=== PATIENT | female | born 1990 | race Two or more races ===

== ENCOUNTER 2024-09-02 08:20 | Emergency (ER) | payer MEDICAID, SELFPAY ==
[2024-09-02 08:26] VITALS: BP 120/77; PULSE 123; RESP 19; TEMP 36.7; O2SAT 98
--- NOTE | 2024-09-02 08:42 | PD.EDRME ---
Rapid Medical Screening Exam RME Arrival date/time: 09/02/24 08:20 33-year-old female presents emergency department complaint of nausea and vomiting ongoing for last couple of weeks Chief Complaint: Nausea/Vomiting/Diarrhea Time Seen by Provider: 09/02/24 08:31 Vital signs: Vital Signs Temperature 98.1 F 09/02/24 08:26 Pulse Rate 123 H 09/02/24 08:26 Respiratory Rate 19 09/02/24 08:26 Blood Pressure 120/77 09/02/24 08:26 Pulse Oximetry (%) 98 09/02/24 08:26 Oxygen Delivery Method Room Air 09/02/24 08:26
[2024-09-02] MEDS: ONDANSETRON ODT 4 MG TABRAP PO (08:54)
[2024-09-02 09:05] LABS: Basophils % (Auto) 0 % (0-2.5); Eosinophils % (Auto) 0 % (0-10); Hematocrit 39.2 % (36.0-46.0); Hemoglobin 12.9 g/dL (12.0-16.0); Immature Granulocytes % (Auto) 0 % (0-0); Immature Granulocytes Auto 0.05 Thou/mm3 (0.00-0.00); Lymphocytes # (Auto) 2.3 Thou/mm3 (1.0-4.8); Lymphocytes % (Auto) 16 % (10-50); Mean Corpuscular HGB Conc 32.9 g/dl (31.0-37.0); Mean Corpuscular Hemoglobin 30.4 pg (25.0-35.0); Mean Corpuscular Volume 92 fL (80-100); Monocytes # (Auto) 0.8 Thou/mm3 (0.0-0.8); Monocytes % (Auto) 6 % (0-12); Neutrophils % (Auto) 77 % (37-80); Nucleated Red Blood Cell % 0 /100 WBC (0); Platelet Count 331 Thou/mm3 (140-440); RDW Standard Deviation 47.3 fL (36.4-46.3); Red Blood Count 4.25 Miln/mm3 (4.00-5.20); White Blood Count 14.2 Thou/mm3 (3.6-11.0)
[2024-09-02 09:34] LABS: Collection Type, Urine Clean Catch
[2024-09-02 09:35] LABS: Alanine Aminotransferase < 7 U/L (10-49); Albumin, Serum 4.9 gm/dL (3.5-5.0); Albumin/Globulin Ratio 1.5 (1.2-2.2); Alkaline Phosphatase 70 U/L (46-116); Anion Gap 7 (7-16); Aspartate Amino Transferase 11 U/L (0-34); BUN/Creatinine Ratio 14 Ratio (12-20); Bilirubin,Total 0.4 mg/dL (0.3-1.2); Blood Urea Nitrogen 10 mg/dL (9-23); Calcium 9.1 mg/dL (8.3-10.6); Calcium (Corrected) 9.1 mg/dL (8.5-10.1); Carbon Dioxide 25.2 mMol/L (20.0-31.0); Chloride 105 mMol/L (98-107); Creatinine (Component) 0.7 mg/dL (0.6-1.3); Estimated Creatinine Clearance 101.5 mL/min (>60); Globulin 3.3 gm/dL (2.3-3.5); Glucose 100 mg/dL (74-106); Lipase 39 U/L (12-53); Osmolality,Calculated 272 (275-295); Potassium 3.6 mMol/L (3.4-5.1); Sodium 137 mMol/L (136-145); Total Protein 8.2 gm/dL (5.7-8.2); eGFR > 60 See Note
[2024-09-02 09:47] LABS: HCG Qualitative,Urine Negative
[2024-09-02 10:02] LABS: Amphetamine/Methamp Scrn,U Negative (Negative); Barbiturate Screen,Urine Negative (Negative); Benzodiazepines Screen,Urine Negative (Negative); Benzoylecgonine Screen, Ur Negative (Negative); Fentanyl Screen,Urine Negative (Negative); Opiate Screen,Urine Negative (Negative); THC Screen,Urine Positive (Negative)
[2024-09-02 10:09] LABS: Bilirubin,Urine Negative (Negative); Blood,Urine 3+ (Negative); Clarity,Urine Turbid (Clear/Hazy); Color,Urine Yellow (Lt Yel-Yel); Culture Indicated,Urine Contaminated; Glucose, Urine Negative (Negative); Ketones,Urine 4+ (Negative); Leukocyte Esterase,Urine Positive (Negative); Nitrite,Urine Negative (Negative); Protein,Urine 2+ (Neg - Trace); RBC,Urine 136 /hpf (0-3); Specific Gravity,Urine 1.035 (1.001-1.035); Squamous Epithelial Cell,Urine 23 /hpf (0-5); WBC,Urine 99 /hpf (0-5)
[2024-09-02 11:06] VITALS: BP 126/84; PULSE 93; RESP 16; TEMP 37.6; O2SAT 98
== END 2024-09-02 12:05 | disposition left against medical advice (07) ==
PROVIDERS: Nurse Practitioner Primary Care; Emergency Provider Emergency Medicine; PCP Nurse Practitioner Family
DX: R11.2 Nausea with vomiting, unspecified (principal); R19.7 Diarrhea, unspecified; Z53.29 Procedure and treatment not carried out because of patient's decision for other reasons
CPT/HCPCS: 36415; 80053; 80307; 81001; 81025; 83690; 85025; 99281; Q0162

== ENCOUNTER 2024-09-03 14:38 | Emergency (ER) | payer MEDICAID, SELFPAY ==
[2024-09-03 14:59] VITALS: BP 115/85; PULSE 137; RESP 20; TEMP 38.3; O2SAT 98; BMI 28.7
--- NOTE | 2024-09-03 15:09 | XR_ITS ---
Examination: PA lateral chest 2 views TECHNIQUE: Upright PA lateral chest 2 views Exam date and time: September 03, 2024 1540 hours INDICATIONS: Chest pain today FINDINGS: Normal heart size Lungs are clear. The osseous structures are intact IMPRESSION: No active disease
--- NOTE | 2024-09-03 15:09 | PD.EDRME ---
Rapid Medical Screening Exam RME Arrival date/time: 09/03/24 14:38 33-year-old female presents emergency department complaints of cough, congestion, difficulty breathing patient is febrile Sepsis protocol initiated Chief Complaint: Chest Pain Time Seen by Provider: 09/03/24 14:41 Vital signs: Vital Signs Temperature 101.0 F H 09/03/24 14:59 Pulse Rate 137 H 09/03/24 14:59 Respiratory Rate 20 09/03/24 14:59 Blood Pressure 115/85 H 09/03/24 14:59 Pulse Oximetry (%) 98 09/03/24 14:59 Oxygen Delivery Method Room Air 09/03/24 14:59
[2024-09-03 15:33] LABS: Lactate (Lactic Acid) 1.4 mMol/L (0.4-2.0)
[2024-09-03 15:35] LABS: Basophils % (Auto) 0 % (0-2.5); Eosinophils % (Auto) 0 % (0-10); Hematocrit 38.5 % (36.0-46.0); Hemoglobin 13.2 g/dL (12.0-16.0); Immature Granulocytes % (Auto) 0 % (0-0); Immature Granulocytes Auto 0.04 Thou/mm3 (0.00-0.00); Lymphocytes # (Auto) 2.4 Thou/mm3 (1.0-4.8); Lymphocytes % (Auto) 22 % (10-50); Mean Corpuscular HGB Conc 34.3 g/dl (31.0-37.0); Mean Corpuscular Hemoglobin 30.8 pg (25.0-35.0); Mean Corpuscular Volume 90 fL (80-100); Monocytes # (Auto) 0.4 Thou/mm3 (0.0-0.8); Monocytes % (Auto) 3 % (0-12); Neutrophils # (Auto) 8.1 Thou/mm3 (1.8-7.7); Neutrophils % (Auto) 74 % (37-80); Nucleated Red Blood Cell % 0 /100 WBC (0); Platelet Count 328 Thou/mm3 (140-440); RDW Standard Deviation 45.6 fL (36.4-46.3); Red Blood Count 4.29 Miln/mm3 (4.00-5.20)
[2024-09-03 15:47] VITALS: TEMP 38.3
[2024-09-03] MEDS: ACETAMINOPHEN 500 MG TABLET 1000 MG PO (15:47)
--- NOTE | 2024-09-03 15:49 | EDNOTE_ITS ---
ED General RME/HPI General Chief complaint: Chest Pain Stated complaint: CHEST PAIN, I CAN'T BREATH Time Seen by Provider: 09/03/24 14:41 Arrival date/time: 09/03/24 14:38 CC: Lightheaded dizzy when stands up, nausea vomiting x 1 month every time she eats HPI nausea vomiting for the last 2 to 3 days nausea vomiting in the past month. Patient denies cough nasal congestion. Patient states last menstrual cycle is irregular secondary to on the patch. The patient is sexually active with 4 children's. Patient denies vaginal bleeding vaginal discharge chest pain shortness of breath difficulty breathing intermittent nausea without vomiting. RME / HPI RME / HPI narrative: 09/03/24 14:38 33-year-old female presents emergency department complaints of cough, congestion, difficulty breathing patient is febrile Sepsis protocol initiated Related Data Home Medications ?Medication ?Instructions ?Recorded ?Confirmed vitamins-iron fumarate 27 1 tab PO QDAY 01/13/20 01/13/20 mg iron-folic acid 0.8 mg tablet ( Vitamin) Previous Rx's ?Medication ?Instructions ?Recorded ibuprofen 600 mg tablet 600 mg PO Q6H PRN fever or pain 02/04/20 #90 tabs gabapentin 300 mg capsule 300 mg PO BID #30 caps 08/16/23 naproxen 500 mg tablet 500 mg PO BID PRN pain #30 tabs 08/16/23 medroxyprogesterone 5 mg tablet 5 mg PO QDAY #30 tabs 05/07/24 (Provera) ondansetron 4 mg disintegrating 4 mg PO Q8H #14 tabs 05/07/24 tablet ondansetron 4 mg disintegrating 4 mg PO Q8H #14 tabs 09/03/24 tablet sucralfate 1 gram tablet (Carafate) 1 g PO BID #20 tabs 09/03/24 Allergies Allergy/AdvReac Type Severity Reaction Status Date / Time No Known Allergies Allergy Verified 09/03/24 14:39 Review of Systems Review of Systems Narrative Review of Systems: GEN: + fever, no chills, no weight loss EYES: No discharge, no visual changes, no pain HEENT: No ear pain, no congestion, no sore throat PULM: No shortness of breath, no cough, no congestion CV: No chest pain, no dyspnea on exertion, no palpitations GI: + nausea, + vomiting, no diarrhea, no pain, no constipation : No frequency, no urgency, no dysuria MUSC/SKEL: No joint pain, no back pain SKIN: No rash PSYCH: No hallucinations, no depression HEME/LYMPH: No easy bleeding or bruising tendencies NEURO: No weakness, no headache Past Medical History Past Medical History NEUROLOGIC: Positive Neurological Disorders, Melton's Palsy and Head Trauma; Negative Seizures CARDIAC: Negative Cardiac Disorders or Congestive Heart Failure RESPIRATORY: Negative Chronic Obstructive Pulmonary Disease (COPD) or Asthma GASTROINTESTINAL: Negative Gastrointestinal Disorders GENITOURINARY: Negative Genitourinary Disorders or Renal Disease REPRODUCTIVE: Positive Endometriosis and Previous Pregnancies MUSCULOSKELETAL: Negative Musculoskeletal Disorders ENT: Positive Head Trauma ENDOCRINE: Negative Endocrine Disorders, Diabetes Mellitus Type 1 or Diabetes Mellitus Type 2 HEMATOLOGIC: Negative Blood Disorders or Sickle Cell Disease PSYCHO/SOCIAL: Positive Depression and Anxiety OTHER HISTORY: Negative Hospitalization, Autoimmune Disease, Shingles, Falls, Blood Transfusions, Blood Transfusion Reaction, Anesthesia Reactions, Chemotherapy, Radiation Therapy or MRSA Family History FAMILY HISTORY: Positive Family Psychiatric Problems, Family Respiratory Disorders, Family Cardiac Disorders, Family Gastrointestinal Problems, Family Surgery and Family Anesthesia Reaction; Negative Family Cancer Surgical History SURGICAL: Negative Section Social History SMOKING STATUS: Never smoker ED Exam Narrative Physical exam: [General: Not in any acute distress Head normocephalic HEENT: Within acceptable limits Neck is supple nontender Chest equal chest rise nontender to palpation Respiratory: Clear to auscultation no wheezes crackles or rubs CV: Rate rhythm is regular, tachycardic, no murmurs rubs or clicks Abdomen is distended secondary to body habitus soft nontender no masses positive bowel sounds all 4 quadrants Back: No CVA tenderness no spinous process tenderness from cervical spine thoracic and lumbar spine Skin: Intact no petechiae rash induration ulceration or crepitus Extremities: Moving all extremity against resistance cap refill less than 2 seconds neurosensory intact Neuro: Awake alert oriented x3 Glascow coma 15 no focal deficits] Course Quality Measures none Orders Category Date Time Status Bedside COVID-19 Antigen Test NOW Care 09/03/24 15:09 Completed Bedside COVID-19 Antigen Test NOW Care 09/03/24 15:52 Completed Bedside Influenza A&B Antigen Test NOW Care 09/03/24 15:09 Completed Bedside Influenza A&B Antigen Test NOW Care 09/03/24 15:52 Completed Saline [Insert IV] NOW Care 09/03/24 15:48 Completed XR chest 2V Stat Exams 09/03/24 15:09 Completed Blood Culture (Lab) Stat Lab 09/03/24 15:18 Received CBC Stat Lab 09/03/24 15:18 Completed Comprehensive Metabolic Panel Stat Lab 09/03/24 15:18 Completed Lactate (Lactic Acid) Stat Lab 09/03/24 15:18 Completed Procalcitonin Stat Lab 09/03/24 15:18 Completed Acetaminophen Tab [Tylenol ES Tab] Med 09/03/24 15:10 Discontinued 1,000 mg PO X1 ONE KCL 10% Liq UDC 15 ML Med 09/03/24 16:40 Discontinued 40 meq GT X1 ONE Ondansetron Odt [Zofran Odt] Med 09/03/24 17:32 Discontinued 4 mg PO X1 ONE Sodium Chloride 0.9% 1000 ml [Ns] 1,000 ml Med 09/03/24 15:48 Discontinued IV 999 mls/hr Sodium Chloride 0.9% 1000 ml [Ns] 1,000 ml Med 09/03/24 15:49 Discontinued IV 999 mls/hr Vital Signs Vital signs: Vital Signs Temperature 101.0 F H 09/03/24 14:59 Pulse Rate 137 H 09/03/24 14:59 Respiratory Rate 20 09/03/24 14:59 Blood Pressure 115/85 H 09/03/24 14:59 Pulse Oximetry (%) 98 09/03/24 14:59 Oxygen Delivery Method Room Air 09/03/24 14:59 [facility] Patient data External records reviewed:: [facility] previous records Clinical information provided by:: patient Social determinants that could affect healthcare access:: none Patient has the following chronic illnesses:: Fibromyalgia How is presenting disease/condition affected by chronic disease/condition?: u neffected by Evaluation data The following diagnostics were reviewed and interpreted by me:: lab results, radiology exam(s) and EKG tracing(s) Lab and/or radiology exams considered but not ordered:: CBC shows no acute leukocytosis anemia thrombocytopenia CMP shows a potassium of 3.0 no other electrolyte imbalances no renal impairment transaminitis or T. bili elevation Urine is negative Lipase is negative UDS is positive for marijuana Procalcitonin is negative. Interpretation Summary: After 2 L of fluid the patient is feeling well the nausea is resolved with Zofran, patient will be discharged home with Zofran and Carafate. She is to follow-up with her primary care provider. Medications Medications considered but not ordered:: None Medication administrations:: Medication Administration History Discontinued Medications Acetaminophen (Acetaminophen 500 Mg Tablet) 1,000 mg PO X1 ONE Stop: 09/03/24 15:11 Last Admin: 09/03/24 15:47 Dose: 1,000 mg Documented By: [place] Sodium Chloride (Ns) 1,000 mls @ 999 mls/hr IV .Q1H1M ONE Stop: 09/03/24 16:48 Last Infusion: 09/03/24 18:05 Dose: Infused Documented By: Admin: 09/03/24 16:50 Dose: 999 mls/hr Documented By: Sodium Chloride (Ns) 1,000 mls @ 999 mls/hr IV .Q1H1M ONE Stop: 09/03/24 16:49 Last Infusion: 09/03/24 18:05 Dose: Infused Documented By: Admin: 09/03/24 17:03 Dose: 999 mls/hr Documented By: Ondansetron HCl (Ondansetron Odt 4 Mg Tabrap) 4 mg PO X1 ONE; Protocol Stop: 09/03/24 17:33 Last Admin: 09/03/24 18:35 Dose: 4 mg Documented By: Potassium Chloride (Potassium Chloride 10% 20 Meq/15 Ml Udc) 40 meq GT X1 ONE Stop: 09/03/24 16:41 Last Admin: 09/03/24 17:02 Dose: 40 meq Documented By: None Consultations Consultation(s) initiated? (list below): No Diagnosis Differential Diagnosis ED Complaint MDM: Sepsis UTI DAVE Most likely diagnosis given after review of the tests above:: Dehydration nausea vomiting Admission Indicated Admission indicated?: not indicated Explain why admission is indicated or not indicated:: Stable for outpatient follow-up Admission Request Was there a request for admission?: No Disposition Plan Disposition Plan: Discharge Discharge Attestation Discharge Attestation: The patient and all family members were given an opportunity to ask questions and understood the discharge instructions. Discharge instructions specifically effects, indications for sooner follow up or return to the emergency department, and the expected course of current diagnosis. Patient condition: Stable Medical Decision Making Differential Diagnosis Differential Diagnosis: Sepsis UTI DAVE Lab Data 09/03/24 15:18 09/03/24 15:18 Labs: Lab Results 09/03/24 Range/Units 15:18 WBC 11.0 (3.6-11.0) Thou/mm3 RBC 4.29 (4.00-5.20) Miln/mm3 Hgb 13.2 (12.0-16.0) g/dL Hct 38.5 (36.0-46.0) % MCV 90 (80-100) fL MCH 30.8 (25.0-35.0) pg MCHC 34.3 (31.0-37.0) g/dl RDW Std Deviation 45.6 (36.4-46.3) fL Plt Count 328 (140-440) Thou/mm3 Neut % (Auto) 74 (37-80) % Lymph % (Auto) 22 (10-50) % [place] % (Auto) 3 (0-12) % Eos % (Auto) 0 (0-10) % Baso % (Auto) 0 (0-2.5) % Neut # (Auto) 8.1 H (1.8-7.7) Thou/mm3 Lymph # (Auto) 2.4 (1.0-4.8) Thou/mm3 [place] # (Auto) 0.4 (0.0-0.8) Thou/mm3 Eos # (Auto) 0.0 (0.0-0.5) Thou/mm3 Baso # (Auto) 0.0 (0.0-0.2) Thou/mm3 Immature Gran # (Auto) 0.04 H (0.00-0.00) Thou/mm3 Absolute Nucleated RBC 0.00 (0.00-0.00) Thou/mm3 Immature Gran % 0 (0-0) % Nucleated RBC % 0 (0) /100 WBC Sodium 136 (136-145) mMol/L Potassium 3.2 L (3.4-5.1) mMol/L Chloride 106 (98-107) mMol/L Carbon Dioxide 21.2 (20.0-31.0) mMol/L Anion Gap 9 (7-16) BUN 9 (9-23) mg/dL Creatinine 0.7 (0.6-1.3) mg/dL Estim Creat Clear Calc 103.4 (>60) mL/min eGFR > 60 (60 - ) See Note BUN/Creatinine Ratio 13 (12-20) Ratio Glucose 104 (74-106) mg/dL Calculated Osmolality 270 L (275-295) Lactic Acid 1.4 (0.4-2.0) mMol/L Calcium 9.3 (8.3-10.6) mg/dL Corrected Calcium 9.3 (8.5-10.1) mg/dL Total Bilirubin 0.5 (0.3-1.2) mg/dL AST 11 (0-34) U/L ALT < 7 L (10-49) U/L Alkaline Phosphatase 72 (46-116) U/L Total Protein 8.1 (5.7-8.2) gm/dL Albumin 4.8 (3.5-5.0) gm/dL Globulin 3.3 (2.3-3.5) gm/dL Albumin/Globulin Ratio 1.5 (1.2-2.2) Procalcitonin 0.04 (0.0-0.49) ng/ml Discharge Plan Plan Patient Disposition: HOME (Self Care) Patient condition on transfer: Stable Prescriptions/Referrals Prescriptions/Med Rec: New sucralfate [Carafate] 1 gram tablet 1 g PO BID Qty: 20 0RF ondansetron 4 mg tablet,disintegrating 4 mg PO Q8H Qty: 14 0RF No Action Vitamin 27 mg iron- 0.8 mg Tablet 1 tab PO QDAY ibuprofen 600 mg tablet 600 mg PO Q6H PRN (Reason: fever or pain) Qty: 90 0RF medroxyprogesterone [Provera] 5 mg tablet 5 mg PO QDAY Qty: 30 1RF ondansetron 4 mg tablet,disintegrating 4 mg PO Q8H Qty: 14 0RF naproxen 500 mg tablet 500 mg PO BID PRN (Reason: pain) Qty: 30 0RF gabapentin 300 mg capsule 300 mg PO BID Qty: 30 0RF Referrals: Maria E Mcdonald FNP [Primary Care Provider] - In 1 week Problem List Clinical Impression: Nausea & vomiting, Fever Patient/Caregiver Discharge Instructions Education Materials: ED Diet for Vomiting or ..., ED Vomiting (Adult) Additional Instructions: Take the medication as prescribed for nausea and just before meal. Follow-up with your primary care provider if there is a worsening of symptoms return the emergency room for reevaluation. Print Language: Barbadian Stand Alone Forms: [employer] Award Info., Work/School Release, Patient Portal Info Letter Attestation Attestation The patient was seen by the midlevel practitioner. I, the co-signing physician, was present during the entire ER visit. While I did not physically examine the patient, I was available for consultation as needed.
[2024-09-03 16:05] LABS: Alanine Aminotransferase < 7 U/L (10-49); Albumin, Serum 4.8 gm/dL (3.5-5.0); Albumin/Globulin Ratio 1.5 (1.2-2.2); Alkaline Phosphatase 72 U/L (46-116); Anion Gap 9 (7-16); Aspartate Amino Transferase 11 U/L (0-34); BUN/Creatinine Ratio 13 Ratio (12-20); Bilirubin,Total 0.5 mg/dL (0.3-1.2); Blood Urea Nitrogen 9 mg/dL (9-23); Calcium 9.3 mg/dL (8.3-10.6); Calcium (Corrected) 9.3 mg/dL (8.5-10.1); Carbon Dioxide 21.2 mMol/L (20.0-31.0); Chloride 106 mMol/L (98-107); Creatinine (Component) 0.7 mg/dL (0.6-1.3); Estimated Creatinine Clearance 103.4 mL/min (>60); Globulin 3.3 gm/dL (2.3-3.5); Glucose 104 mg/dL (74-106); Osmolality,Calculated 270 (275-295); Potassium 3.2 mMol/L (3.4-5.1); Procalcitonin 0.04 ng/ml (0.0-0.49); Sodium 136 mMol/L (136-145); Total Protein 8.1 gm/dL (5.7-8.2); eGFR > 60 See Note
[2024-09-03] MEDS: SODIUM CHLORIDE 0.9% 1000 ML 1,000 ML 999 ML IV ×2 (16:50→17:03)
[2024-09-03] MEDS: POTASSIUM CHLORIDE 10% 20 MEQ/15 ML UDC 40 MEQ GT (17:02)
[2024-09-03 17:47] VITALS: BP 113/67; PULSE 90; RESP 19; TEMP 36.7; O2SAT 98
[2024-09-03 18:06] VITALS: TEMP 36.9
[2024-09-03 18:27] VITALS: BP 102/69; PULSE 86; RESP 18; TEMP 37.2; O2SAT 99
[2024-09-03] MEDS: ONDANSETRON ODT 4 MG TABRAP PO (18:35)
== END 2024-09-03 19:28 | disposition home or self-care (01) ==
PROVIDERS: Nurse Practitioner Primary Care; Emergency Provider Emergency Medicine; PCP Nurse Practitioner Family
DX: R11.2 Nausea with vomiting, unspecified (principal); R50.9 Fever, unspecified; R07.9 Chest pain, unspecified
CPT/HCPCS: 36415; 71046; 80053; 81001; 81025; 83605; 84145; 85025; 87040; 87400; 87811; 96360; 99284; J7030; Q0162; A9270

== ENCOUNTER 2024-09-04 13:15 | Emergency (ER) | payer MEDICAID, SELFPAY ==
--- NOTE | 2024-09-04 13:22 | EDNOTE_ITS ---
ED General RME/HPI General Chief complaint: General Adult/Misc Complain Stated complaint: AMS Time Seen by Provider: 09/04/24 13:21 Arrival date/time: 09/04/24 13:15 CC: Catatonic state HPI patient presents the ER via EMS with stable vital signs but not responding to EMS other than with sternal rub and the patient is very deliberate and her localization. Patient was just seen here yesterday was very animated, had complaints of fever and nausea vomiting had a full treatment including IV fluids and was sent home on medications. When initially approached the patient, she recognized me and nodded but the minute she closed her eyes she then went into a nonresponsive state, and was very deliberate and removing my hand from her sternal rub. Vital signs were stable. EMS reports she went to the bathroom to throw up and family members found her on the floor. At 1430, the patient is awake enough to admit that she took somewhere between 10 and 2050 mg trazodone's because she wanted to get some sleep . The patient denies suicidal homicidal ideation. Related Data Home Medications ?Medication ?Instructions ?Recorded ?Confirmed vitamins-iron fumarate 27 1 tab PO QDAY 01/13/20 01/13/20 mg iron-folic acid 0.8 mg tablet ( Vitamin) Previous Rx's ?Medication ?Instructions ?Recorded ibuprofen 600 mg tablet 600 mg PO Q6H PRN fever or pain 02/04/20 #90 tabs gabapentin 300 mg capsule 300 mg PO BID #30 caps 08/16/23 naproxen 500 mg tablet 500 mg PO BID PRN pain #30 tabs 08/16/23 medroxyprogesterone 5 mg tablet 5 mg PO QDAY #30 tabs 05/07/24 (Provera) ondansetron 4 mg disintegrating 4 mg PO Q8H #14 tabs 05/07/24 tablet ondansetron 4 mg disintegrating 4 mg PO Q8H #14 tabs 09/03/24 tablet sucralfate 1 gram tablet (Carafate) 1 g PO BID #20 tabs 09/03/24 Allergies Allergy/AdvReac Type Severity Reaction Status Date / Time No Known Allergies Allergy Verified 09/03/24 14:39 Review of Systems Review of Systems ROS Unobtainable: unobtainable due to mental status Past Medical History Past Medical History NEUROLOGIC: Positive Neurological Disorders, Melton's Palsy and Head Trauma; Negative Seizures CARDIAC: Negative Cardiac Disorders or Congestive Heart Failure RESPIRATORY: Negative Chronic Obstructive Pulmonary Disease (COPD) or Asthma GASTROINTESTINAL: Negative Gastrointestinal Disorders GENITOURINARY: Negative Genitourinary Disorders or Renal Disease REPRODUCTIVE: Positive Endometriosis and Previous Pregnancies MUSCULOSKELETAL: Negative Musculoskeletal Disorders ENT: Positive Head Trauma ENDOCRINE: Negative Endocrine Disorders, Diabetes Mellitus Type 1 or Diabetes Mellitus Type 2 HEMATOLOGIC: Negative Blood Disorders or Sickle Cell Disease PSYCHO/SOCIAL: Positive Depression and Anxiety OTHER HISTORY: Negative Hospitalization, Autoimmune Disease, Shingles, Falls, Blood Transfusions, Blood Transfusion Reaction, Anesthesia Reactions, Chemotherapy, Radiation Therapy or MRSA Family History FAMILY HISTORY: Positive Family Psychiatric Problems, Family Respiratory Disorders, Family Cardiac Disorders, Family Gastrointestinal Problems, Family Surgery and Family Anesthesia Reaction; Negative Family Cancer Surgical History SURGICAL: Negative Section Social History SMOKING STATUS: Never smoker ED Exam Narrative Physical exam: [General: Obese awake, appears not in any acute distress Head normocephalic HEENT: Eyes pupils are PERRLA EOMs are intact all other subsystems of HEENT are within acceptable limits Neck is supple nontender Chest equal chest rise nontender to palpation Respiratory: Clear to auscultation no wheezes crackles or rubs CV: Rate rhythm is regular no murmurs rubs or clicks Abdomen is distended secondary to body habitus soft nontender no masses positive bowel sounds all 4 quadrants Back: No CVA tenderness no spinous process tenderness from cervical spine thoracic and lumbar spine Skin: Intact no petechiae rash induration ulceration or crepitus Extremities: Moving all extremity against resistance cap refill less than 2 seconds neurosensory intact Neuro: Awake not responding to questions. Course Course Course Narrative: Contact poison control side effects include BLAST SETTER depression, QTc prolongation, potential seizure disorders altered mentation minimal of observation time is 6 hours, recommend activated charcoal as ingestion time is 1 hour. Although the patient denies suicidal ideation I saw her yesterday and her chief complaint was lengthily involving 1+ months of nausea vomiting every time she eats although she is not malnourished. I wonder if this is psychological or not the combination of the behavior today and her complaints yesterday may be concerned that the patient is suffering from depression which the patient has a history of. At this time going to put her on a 1798 hold, wait until she is medically cleared for evaluation in the morning. Quality Measures none Orders Category Date Time Status 179 Psychiatric Hold NOW Care 09/04/24 14:45 Ordered EKG (ED ONLY) *Do not use* NOW Care 09/04/24 14:32 Completed EKG (ED ONLY) *Do not use* NOW Care 09/04/24 18:54 Completed Diet Regular Diet 09/05/24 Breakfast Active EKG (ED Only) Stat Exams 09/04/24 14:32 Draft EKG (ED Only) Stat Exams 09/04/24 18:54 Draft Acetaminophen Stat Lab 09/04/24 13:29 Completed Alcohol, Blood Medical Stat Lab 09/04/24 13:29 Completed CBC Stat Lab 09/04/24 13:29 Completed CMP [Comprehensive Metabolic Panel] Stat Lab 09/04/24 13:29 Completed Drug Screen,Urine Stat Lab 09/04/24 20:38 Completed HCG Qualitative,Urine Stat Lab 09/04/24 20:38 Completed Salicylate Stat Lab 09/04/24 13:29 Completed Urinalysis Stat Lab 09/04/24 20:38 Completed KCL 10% Liq UDC 15 ML Med 09/04/24 18:54 Discontinued 40 meq GT X1 ONE activated charcoaL [Actidose-Aqua] Med 09/04/24 14:32 Discontinued 50 gm PO X1 ONE Vital Signs Vital signs: Vital Signs Temperature 98.1 F 09/04/24 14:27 Pulse Rate 97 09/04/24 14:27 Respiratory Rate 14 09/04/24 14:27 Blood Pressure 104/61 09/04/24 14:27 Pulse Oximetry (%) 99 09/04/24 14:27 Oxygen Delivery Method Room Air 09/04/24 14:27 [facility] Patient data External records reviewed:: [facility] previous records and EMS form Clinical information provided by:: patient and EMS Social determinants that could affect healthcare access:: none Patient has the following chronic illnesses:: None How is presenting disease/condition affected by chronic disease/condition?: u neffected by Evaluation data The following diagnostics were reviewed and interpreted by me:: lab results Lab and/or radiology exams considered but not ordered:: EKG performed at 1446 shows a ventricular of 98 WA interval 131 QRS of 88 QTc of 396 sinus rhythm some T wave abnormalities. No old EKG for comparison. Repeat EKG at 1944 shows a ventricular rate of 109 this is a normal sinus rhythm QRS of 102 QTc of 390. No change with the previous EKG. Interpretation Summary: Severe depression suicidal ideation Medications Medications considered but not ordered:: None Medication administrations:: Medication Administration History Discontinued Medications Charcoal (Activated Charcoal 25 Gm/120 Ml Tube) 50 gm PO X1 ONE Stop: 09/04/24 14:33 Last Admin: 09/04/24 14:48 Dose: 50 gm Documented By: AA Potassium Chloride (Potassium Chloride 10% 20 Meq/15 Ml Udc) 40 meq GT X1 ONE Stop: 09/04/24 18:55 Last Admin: 09/04/24 20:31 Dose: 40 meq Documented By: CG None Consultations Consultation(s) initiated? (list below): No Diagnosis Differential Diagnosis ED Complaint MDM: Suicidal ideation severe depression suicide attempt Most likely diagnosis given after review of the tests above:: Severe depression suicidal ideation suicide attempt Admission Indicated Admission indicated?: indicated Explain why admission is indicated or not indicated:: Further psychiatric management Admission Request Was there a request for admission?: No Disposition Plan Disposition Plan: Transfer Medical Decision Making Differential Diagnosis Differential Diagnosis: Suicidal ideation severe depression suicide attempt Lab Data 09/04/24 13:29 09/04/24 13:29 Labs: Lab Results 09/04/24 09/04/24 Range/Units 13:29 20:38 WBC 7.4 (3.6-11.0) Thou/mm3 RBC 3.81 L (4.00-5.20) Miln/mm3 Hgb 11.8 L (12.0-16.0) g/dL Hct 35.3 L (36.0-46.0) % MCV 93 (80-100) fL MCH 31.0 (25.0-35.0) pg MCHC 33.4 (31.0-37.0) g/dl RDW Std Deviation 48.1 H (36.4-46.3) fL Plt Count 235 D (140-440) Thou/mm3 Neut % (Auto) 72 (37-80) % Lymph % (Auto) 20 (10-50) % [place] % (Auto) 8 (0-12) % Eos % (Auto) 0 (0-10) % Baso % (Auto) 0 (0-2.5) % Neut # (Auto) 5.3 (1.8-7.7) Thou/mm3 Lymph # (Auto) 1.5 (1.0-4.8) Thou/mm3 [place] # (Auto) 0.6 (0.0-0.8) Thou/mm3 Eos # (Auto) 0.0 (0.0-0.5) Thou/mm3 Baso # (Auto) 0.0 (0.0-0.2) Thou/mm3 Immature Gran # (Auto) 0.05 H (0.00-0.00) Thou/mm3 Absolute Nucleated RBC 0.00 (0.00-0.00) Thou/mm3 Immature Gran % 1 H (0-0) % Nucleated RBC % 0 (0) /100 WBC Sodium 136 (136-145) mMol/L Potassium 3.3 L (3.4-5.1) mMol/L Chloride 107 (98-107) mMol/L Carbon Dioxide 18.8 L (20.0-31.0) mMol/L Anion Gap 10 (7-16) BUN 5 L (9-23) mg/dL Creatinine 0.6 (0.6-1.3) mg/dL Estim Creat Clear Calc Not Performed. eGFR > 60 (60 - ) See Note BUN/Creatinine Ratio 8 L (12-20) Ratio Glucose 137 H (74-106) mg/dL Calculated Osmolality 271 L (275-295) Calcium 8.5 (8.3-10.6) mg/dL Corrected Calcium 8.5 (8.5-10.1) mg/dL Total Bilirubin 0.4 (0.3-1.2) mg/dL AST 10 (0-34) U/L ALT 10 (10-49) U/L Alkaline Phosphatase 66 (46-116) U/L Total Protein 7.2 (5.7-8.2) gm/dL Albumin 4.3 D (3.5-5.0) gm/dL Globulin 2.9 (2.3-3.5) gm/dL Albumin/Globulin Ratio 1.5 (1.2-2.2) Ur Collection Type Clean Catch Urine Color Yellow (Lt Yel-Yel) Urine Clarity Turbid A (Clear/Hazy) Urine pH 6.5 (5.0-7.0) Ur Specific [place] 1.032 (1.001-1.035) Urine Protein 1+ A (Neg - Trace) Urine Glucose (UA) Negative (Negative) Urine Ketones 4+ A (Negative) Urine Blood 3+ A (Negative) Urine Nitrite Negative (Negative) Urine Bilirubin Negative (Negative) Urine Urobilinogen (Auto) 4.0 (0.0-1.0) mg/dL Ur Leukocyte Esterase Positive (Negative) Urine RBC 12 H (0-3) /hpf Urine WBC 35 H (0-5) /hpf Ur Squamous Epith Cells 8 H (0-5) /hpf Urine Bacteria None (None) Urine HCG, Qual Negative Salicylates < 3.0 mg/dL Urine Opiates Screen Positive A (Negative) Urine Fentanyl Screen Negative (Negative) Acetaminophen 3.6 L (10.0-20.0) mcg/mL Ur Barbiturates Screen Negative (Negative) U Amphetamin/Meth Scrn Negative (Negative) U Benzodiazepines Scrn Negative (Negative) U Cocaine Metab Screen Negative (Negative) U Marijuana (THC) Screen Positive A (Negative) Ethyl Alcohol < 10.0 (0-10.0) mg/dL Discharge Plan Plan Patient Disposition: [facility] Disposition Comment: Stable for transfer Prescriptions/Referrals Prescriptions/Med Rec: No Action Vitamin 27 mg iron- 0.8 mg Tablet 1 tab PO QDAY ibuprofen 600 mg tablet 600 mg PO Q6H PRN (Reason: fever or pain) Qty: 90 0RF medroxyprogesterone [Provera] 5 mg tablet 5 mg PO QDAY Qty: 30 1RF ondansetron 4 mg tablet,disintegrating 4 mg PO Q8H Qty: 14 0RF sucralfate [Carafate] 1 gram tablet 1 g PO BID Qty: 20 0RF ondansetron 4 mg tablet,disintegrating 4 mg PO Q8H Qty: 14 0RF naproxen 500 mg tablet 500 mg PO BID PRN (Reason: pain) Qty: 30 0RF gabapentin 300 mg capsule 300 mg PO BID Qty: 30 0RF Referrals: Brenda Maldonado PA-C [Primary Care Provider] - In 1 week Problem List Clinical Impression: Suicidal ideation, Overdose Patient/Caregiver Discharge Instructions Print Language: [place] Stand Alone Forms: [employer] Award Info., Patient Portal Info Letter
[2024-09-04 13:47] LABS: Basophils % (Auto) 0 % (0-2.5); Eosinophils % (Auto) 0 % (0-10); Hematocrit 35.3 % (36.0-46.0); Hemoglobin 11.8 g/dL (12.0-16.0); Immature Granulocytes % (Auto) 1 % (0-0); Immature Granulocytes Auto 0.05 Thou/mm3 (0.00-0.00); Lymphocytes # (Auto) 1.5 Thou/mm3 (1.0-4.8); Lymphocytes % (Auto) 20 % (10-50); Mean Corpuscular HGB Conc 33.4 g/dl (31.0-37.0); Mean Corpuscular Volume 93 fL (80-100); Monocytes # (Auto) 0.6 Thou/mm3 (0.0-0.8); Monocytes % (Auto) 8 % (0-12); Neutrophils # (Auto) 5.3 Thou/mm3 (1.8-7.7); Neutrophils % (Auto) 72 % (37-80); Nucleated Red Blood Cell % 0 /100 WBC (0); Platelet Count 235 Thou/mm3 (140-440); RDW Standard Deviation 48.1 fL (36.4-46.3); Red Blood Count 3.81 Miln/mm3 (4.00-5.20); White Blood Count 7.4 Thou/mm3 (3.6-11.0)
[2024-09-04 14:18] LABS: Alanine Aminotransferase 10 U/L (10-49); Albumin, Serum 4.3 gm/dL (3.5-5.0); Albumin/Globulin Ratio 1.5 (1.2-2.2); Alkaline Phosphatase 66 U/L (46-116); Anion Gap 10 (7-16); Aspartate Amino Transferase 10 U/L (0-34); BUN/Creatinine Ratio 8 Ratio (12-20); Bilirubin,Total 0.4 mg/dL (0.3-1.2); Blood Urea Nitrogen 5 mg/dL (9-23); Calcium 8.5 mg/dL (8.3-10.6); Calcium (Corrected) 8.5 mg/dL (8.5-10.1); Carbon Dioxide 18.8 mMol/L (20.0-31.0); Chloride 107 mMol/L (98-107); Creatinine (Component) 0.6 mg/dL (0.6-1.3); Globulin 2.9 gm/dL (2.3-3.5); Glucose 137 mg/dL (74-106); Osmolality,Calculated 271 (275-295); Potassium 3.3 mMol/L (3.4-5.1); Sodium 136 mMol/L (136-145); Total Protein 7.2 gm/dL (5.7-8.2); eGFR > 60 See Note
[2024-09-04 14:27] VITALS: BP 104/61; PULSE 97; RESP 14; TEMP 36.7; O2SAT 99
--- NOTE | 2024-09-04 14:32 | EKG_ITS ---
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
[2024-09-04] MEDS: activated charcoaL 25 GM/120 ML TUBE 50 GM PO (14:48)
[2024-09-04 15:00] VITALS: BMI 29.7
[2024-09-04 15:08] LABS: Acetaminophen 3.6 mcg/mL (10.0-20.0); Alcohol, Blood Medical < 10.0 mg/dL (0-10.0); Salicylate < 3.0 mg/dL
--- NOTE | 2024-09-04 15:27 | PC.CC ---
Patient is a 33 year-old female BIBA for Alter Mental Status due taking 10-20 Trazadone to sleep. Nancie met with patient [id number] to complete assessment. ASW introduced self, role, and reason for assessment. ASW disclosed limits of confidentiality as well. Patient appeared alert and oriented to self, place, and situation. Patient?s mood appeared depressed with a flat affect. No signs of delusions, paranoid or V/h. Patient reports she has not been able to sleep in ?days? and stated, ?I been feeling depressed and sad but for no reason it comes in waves.? The patient reports this was not a suicide attempt and just wanted to get some sleep. The patient reports she had a suicide by means of cutting her wrist more than 10 years ago. The patient denied auditory and visual hallucinations, homicidal ideations. The patient denied past psychiatric hospitalization and reported she has never been placed on a 5150. The patient is connected to [facility] and has a diagnosis of PTSD, Anxiety, Depression, and Dissociative Disorder. The patient is seen by Psychiatrist Dr. Castano and has a therapist. The patient reports she is prescribed psychotropic medication and takes it as ordered. Collateral The following information is collateral from patient?s mother Marietta Bowman . Marietta disclosed that her daughter has been depressed the last several days and has been crying for multiple days. Per Marietta, she has been attempting to stay with the patient as much as she can but reported she went to the room and took the pills today and then told her she had consumed the medication. [facility] ([facility]) reports patient is connected to their clinic and is seen by Dr. Castano with her next appointment being on 10/04/2024 at 9 am. She has an appointment with her therapist on 09/10/2024 at 11 am. Patient was placed on a 1799 at 1445 and is pending clearance and clearance from poison control. ASW to remain available.
--- NOTE | 2024-09-04 18:54 | EKG_ITS ---
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
[2024-09-04 19:03] VITALS: BP 119/75; PULSE 106; RESP 18; TEMP 36.9; O2SAT 96
--- NOTE | 2024-09-04 19:05 | PC.NURSE ---
AT TIME OF ASSESSMENT PATIENT DENIES ANY SUICIDAL THOUGHTS OR IDEATION. PT STATES SHE TOOK PILLS BECAUSE SHE COULDNT SLEEP AND HAD BEEN AWAKE FOR DAYS. SHE WAS ATTEMPTING TO TAKE THE PILLS TO HELP SLEEP AND NOT BECAUSE SHE WAS TRYING TO HURT HERSELF. PT DOES NOT KNOW THE NAME OF THE DRUG SHE TOOK. PT ALERT AND ORIENTED, HAS SITTER AT BEDSIDE AND WILL CONTINUE WITH PLAN OF CARE. PT WAITING TO SEE CRISIS IN AM
[2024-09-04] MEDS: POTASSIUM CHLORIDE 10% 20 MEQ/15 ML UDC 40 MEQ GT (20:31)
[2024-09-04 20:52] LABS: Collection Type, Urine Clean Catch
[2024-09-04 21:11] LABS: Bilirubin,Urine Negative (Negative); Blood,Urine 3+ (Negative); Clarity,Urine Turbid (Clear/Hazy); Color,Urine Yellow (Lt Yel-Yel); Glucose, Urine Negative (Negative); HCG Qualitative,Urine Negative; Ketones,Urine 4+ (Negative); Leukocyte Esterase,Urine Positive (Negative); Nitrite,Urine Negative (Negative); PH,Urine 6.5 (5.0-7.0); Protein,Urine 1+ (Neg - Trace); RBC,Urine 12 /hpf (0-3); Specific Gravity,Urine 1.032 (1.001-1.035); Squamous Epithelial Cell,Urine 8 /hpf (0-5); WBC,Urine 35 /hpf (0-5)
[2024-09-04 21:27] LABS: Amphetamine/Methamp Scrn,U Negative (Negative); Barbiturate Screen,Urine Negative (Negative); Benzodiazepines Screen,Urine Negative (Negative); Benzoylecgonine Screen, Ur Negative (Negative); Fentanyl Screen,Urine Negative (Negative); Opiate Screen,Urine Positive (Negative); THC Screen,Urine Positive (Negative)
[2024-09-04 22:00] VITALS: BP 98/62; PULSE 110; RESP 20; TEMP 36.9; O2SAT 98
--- NOTE | 2024-09-04 22:41 | EDNOTE_ITS ---
Emergency Room Addendum Addendum Narrative: 2240: Care assumed from Keyur Horton NP. Past medical, surgical, social and family history reviewed. Vitals and home medications reviewed. Results and treatment plan discussed. I will assume the care of the patient at this time and will follow the patient, pending psychiatric evaluation. Please refer to the emergency department record for history and examination. Patient was placed in observation for treatment and monitoring of psychiatric symptoms, at 2240 on 09/04/2024. Symptoms consist of suicidal ideation and depression. Treatment plan includes psychiatric consult, reassessments, and possible placement into psychiatric facility. The patient had access and provided personal hygiene, shower, food, water, and daily medications. 0600: Care signed out to the next oncoming provider. Past medical, surgical, social and family history reviewed. Vitals and home medications reviewed. Results and treatment plan discussed. They will assume the care of the patient at this time and will follow the patient, pending social services specialist consultation. At this time, observation has ended.
[2024-09-05 00:03] VITALS: BP 93/60; PULSE 83; RESP 17; TEMP 36.7; O2SAT 95
[2024-09-05 01:57] VITALS: BP 94/61; PULSE 79; RESP 17; O2SAT 94
--- NOTE | 2024-09-05 01:58 | PC.NURSE ---
pt resting quietly in bed with eyes closed, vitals signs were taken and no needs were expressed at this time.
[2024-09-05 03:59] VITALS: BP 91/66; PULSE 85; RESP 17; O2SAT 96
[2024-09-05 05:50] VITALS: BP 111/62; PULSE 89; RESP 17; O2SAT 100
--- NOTE | 2024-09-05 06:38 | PC.NURSE ---
NO ISSUES REPORTED THROUGHOUT THE NIGHT. PT WAITING FOR CRISIS/SS IN AM. WILL CONTINUE WITH PLAN OF CARE
--- NOTE | 2024-09-05 06:51 | EDNOTE_ITS ---
Emergency Room Addendum <Ingrid Rahman - Last Filed: 09/05/24 08:55> Addendum Narrative: 0600: Care assumed from Dr. Laguna, the previous shift emergency physician. Past medical, surgical, social and family history reviewed. Vitals and home medications reviewed. I will assume the care of the patient at this time, pending . Please refer to the emergency department record for history and examination from initial visit.? EMS notes reviewed by me. Nursing notes reviewed by me. Vital signs reviewed by me. [place] medical records reviewed by me. 0855: [facility] has notified me that the patient has been accepted by Dr. Andrade at [facility]. <Erick Marie MD - Last Filed: 09/05/24 08:57> Addendum Narrative: 0600: Care assumed from Dr. Laguna, the previous shift emergency physician. Past medical, surgical, social and family history reviewed. Vitals and home medications reviewed. I will assume the care of the patient at this time, pending . Please refer to the emergency department record for history and examination from initial visit.? EMS notes reviewed by me. Nursing notes reviewed by me. Vital signs reviewed by me. [place] medical records reviewed by me. 0855: [facility] has notified me that the patient has been accepted by Dr. Andrade at [facility]. Diagnosis: Medication overdose Condition: Stable for transfer
--- NOTE | 2024-09-05 07:18 | PC.CC ---
Daisy ANNE met with patient to discuss her mental health. Patient presented as depressed and tearful. Patient stated, I am very depressed and I don't know why. Patient reports she has been feeling depressed of the past month and does not know what can be causing her depression. The patient confirmed she is taking her psychotropic medication as prescribed.
--- NOTE | 2024-09-05 07:36 | PC.CC ---
Upon clinical consultation with RING STRIKER, Elma Vallejo patient will be placed on a 5150-hold for Danger to Self. ASW to provide advisement to the patient.
--- NOTE | 2024-09-05 08:51 | PC.NURSE ---
SPOKE WITH FLORINA FROM [facility]. INFO GIVEN. STATES SHE WILL PRESENT TO HER MD AND CALL US BACK.
--- NOTE | 2024-09-05 08:54 | PC.NURSE ---
CISCO FROM [facility] CALLED WITH ACCEPTANCE BY DR WADDELL. NURSE TO NURSE REPORT [phone]. REQUESTING ETA 1100
--- NOTE | 2024-09-05 08:59 | PC.CC ---
Patient has been accepted to [facility] by Dr. Andrade. Patient has been advised. ASW setting transportation for transport.
[2024-09-05 09:03] VITALS: BP 114/72; PULSE 91; RESP 18; TEMP 36.7; O2SAT 98
--- NOTE | 2024-09-05 09:13 | PC.CC ---
telecommunicator Lanise and Dr. Gibson were made aware of the discharge plan. Transportation arranged for 1000 with [facility].
--- NOTE | 2024-09-05 10:09 | PC.NURSE ---
ATTEMPTED TO CALL REPORT TO [facility]. STATES THEY ARE NOT READY FOR REPORT YET THAT THEY WILL CALL ME BACK.
[2024-09-05 10:14] VITALS: BP 131/83; PULSE 92; RESP 18; TEMP 36.8; O2SAT 98
--- NOTE | 2024-09-05 10:51 | PC.NURSE ---
REPORT GIVEN TO YOLETTE PUGA AT [facility]
== END 2024-09-05 11:24 ==
PROVIDERS: Registered Nurse General Practice; Emergency Provider Emergency Medicine; PCP Physician Assistant
DX: T50.902A Poisoning by unspecified drugs, medicaments and biological substances, intentional self-harm, initial encounter (principal); R41.82 Altered mental status, unspecified; R94.31 Abnormal electrocardiogram [ECG] [EKG]
CPT/HCPCS: 36415; 80053; 80307; 80320; 80329; 81001; 81025; 85025; 90839; 93005; 96127; 99285; A9270; G0480